=== PATIENT | male | born 1990 | race Caucasian/White ===

== ENCOUNTER 2025-02-14 18:05 | Emergency (ER) | payer MEDICAID, SELFPAY ==
[2025-02-14 18:05] VITALS: BP 140/97; PULSE 88; RESP 18; TEMP 36.9; O2SAT 98
--- NOTE | 2025-02-14 18:07 | EKG_ITS ---
[facility] Test Date: 2025-02-14 Pat Name: ANYA PATEL Department: Room: - Gender: Male Object Oriented Programmer: : 1990 Requested By: ED Temporary Provider Order Number: [id number] Reading MD: ED Temporary Provider Measurements Intervals [place] Rate: 94 P: 46 AR: 155 QRS: 40 QRSD: 94 T: 31 QT: 322 QTc: 405 Interpretive Statements SINUS RHYTHM Compared to ECG 12/17/2023 18:47:13 Sinus tachycardia no longer present /store/[id number].pdf
[2025-02-14 18:09] VITALS: BMI 39.7
--- NOTE | 2025-02-14 19:24 | XR_ITS ---
Examination: PA chest single view TECHNIQUE: Upright PA chest single view Date and time: February 14, 2025, 1930 hours. INDICATIONS: Chest pain shortness of breath today. FINDINGS: Normal heart size. Lungs are clear. The osseous structures are intact. IMPRESSION: No active disease.
--- NOTE | 2025-02-14 19:24 | PD.EDRME ---
Rapid Medical Screening Exam RME Arrival date/time: This is a case of 34-year-old male with history of hypertension came in in the emergency room due to on and off chest pain today with shortness of breath no palpitation worsening of the symptoms this patient decided to start consult here in the emergency room Chief Complaint: Chest Pain Time Seen by Provider: 02/14/25 19:24 Vital signs: Vital Signs Temperature 98.5 F 02/14/25 18:05 Pulse Rate 88 02/14/25 18:05 Respiratory Rate 18 02/14/25 18:05 Blood Pressure 140/97 H 02/14/25 18:05 Pulse Oximetry (%) 98 02/14/25 18:05 Oxygen Delivery Method Room Air 02/14/25 18:05
[2025-02-14 20:27] LABS: Basophils # (Auto) 0.1 Thou/mm3 (0.0-0.2); Basophils % (Auto) 1 % (0-2.5); Eosinophils # (Auto) 0.2 Thou/mm3 (0.0-0.5); Eosinophils % (Auto) 2 % (0-10); Hematocrit 44.7 % (41.0-53.0); Hemoglobin 15.4 g/dL (13.5-16.0); Immature Granulocytes Auto 0.03 Thou/mm3 (0.00-0.00); Lymphocytes # (Auto) 3.5 Thou/mm3 (1.0-4.8); Lymphocytes % (Auto) 34 % (10-50); Mean Corpuscular HGB Conc 34.5 g/dl (31.0-37.0); Mean Corpuscular Hemoglobin 30.3 pg (25.0-35.0); Mean Corpuscular Volume 88 fL (80-100); Monocytes # (Auto) 0.7 Thou/mm3 (0.0-0.8); Monocytes % (Auto) 7 % (0-12); Neutrophils # (Auto) 5.9 Thou/mm3 (1.8-7.7); Neutrophils % (Auto) 57 % (37-80); Nucleated Red Blood Cell # 0.00 Thou/mm3 (0.00-0.00); Nucleated Red Blood Cell % 0 /100 WBC (0); Platelet Count 237 Thou/mm3 (140-440); RDW Standard Deviation 41.3 fL (35.1-43.9); Red Blood Count 5.08 Miln/mm3 (4.50-5.90); White Blood Count 10.4 Thou/mm3 (3.8-10.6)
[2025-02-14 20:44] LABS: B-Type Natriuretic Peptide < 20 pg/mL (0-100)
[2025-02-14 20:46] LABS: Alanine Aminotransferase 97 U/L (10-49); Albumin, Serum 4.6 gm/dL (3.5-5.0); Albumin/Globulin Ratio 1.4 (1.2-2.2); Alkaline Phosphatase 69 U/L (46-116); Anion Gap 9 (7-16); Aspartate Amino Transferase 57 U/L (0-34); BUN/Creatinine Ratio 8 Ratio (12-20); Bilirubin,Total 0.7 mg/dL (0.3-1.2); Blood Urea Nitrogen 8 mg/dL (9-23); Calcium 10.1 mg/dL (8.3-10.6); Calcium (Corrected) 10.1 mg/dL (8.5-10.1); Carbon Dioxide 26.8 mMol/L (20.0-31.0); Chloride 104 mMol/L (98-107); Creatinine (Component) 1.0 mg/dL (0.6-1.3); D-Dimer < 250 ng/mL (<600); Estimated Creatinine Clearance 171.4 mL/min (>60); Globulin 3.3 gm/dL (2.3-3.5); Glucose 82 mg/dL (74-106); Osmolality,Calculated 276 (275-295); Potassium 3.8 mMol/L (3.4-5.1); Sodium 140 mMol/L (136-145); Total Protein 7.9 gm/dL (5.7-8.2); Troponin I < 0.002 ng/mL (0.0-0.045); eGFR > 60 See Note
[2025-02-15 00:02] VITALS: BP 134/84; PULSE 94; RESP 17; TEMP 36.7; O2SAT 96
[2025-02-15 00:22] LABS: Troponin I < 0.002 ng/mL (0.0-0.045)
[2025-02-15 00:59] LABS: Amphetamine/Methamp Scrn,U Negative (Negative); Barbiturate Screen,Urine Negative (Negative); Benzodiazepines Screen,Urine Negative (Negative); Benzoylecgonine Screen, Ur Negative (Negative); Fentanyl Screen,Urine Negative (Negative); Opiate Screen,Urine Negative (Negative); THC Screen,Urine Negative (Negative)
--- NOTE | 2025-02-15 01:53 | PD.EDCHEST ---
ED Chest Pain RME/HPI General Chief Complaint: Chest Pain Stated Complaint: CHEST PAIN X 20 MIN Time Seen by Provider: 02/14/25 19:24 Arrival date/time: 02/14/25 18:05 This is a case of 34-year-old male with history of hypertension came in in the emergency room due to on and off chest pain today with shortness of breath no palpitation worsening of the symptoms this patient decided to start consult here in the emergency room Limitations: no limitations RME / HPI RME / HPI narrative: This is a case of 34-year-old male with history of hypertension came in in the emergency room due to on and off chest pain today with shortness of breath no palpitation worsening of the symptoms this patient decided to start consult here in the emergency room Related Data Allergies Allergy/AdvReac Type Severity Reaction Status Date / Time No Known Allergies Allergy Verified 02/14/25 18:05 Review of Systems Review of Systems Systems Reviewed: All systems reviewed, normal except as documented Constitutional Constitutional: Reports system reviewed and no additional complaints, except as documented and Reports as per HPI Cardiovascular Cardiovascular: Reports system reviewed and no additional complaints, except as documented, Reports as per HPI, Reports chest pain and Reports dyspnea Respiratory Respiratory: Reports system reviewed and no additional complaints, except as documented, Reports as per HPI and Reports dyspnea Gastrointestinal Gastrointestinal: Reports system reviewed and no additional complaints, except as documented and Reports as per HPI Genitourinary Genitourinary: Reports system reviewed and no additional complaints, except as documented Neurologic Neurologic: Reports system reviewed and no additional complaints, except as documented and Reports as per HPI Past Medical History Social History SMOKING STATUS: Never smoker ED Exam General Limitations: Present no limitations General appearance: Present alert, in no apparent distress and other (Patient is awake alert oriented not in distress nontoxic looking well-hydrated well-nourished) Head Head exam: Present atraumatic, normocephalic and normal inspection Eye Eye exam: Present normal appearance, PERRL and EOMI ENT ENT exam: Present normal exam, normal oropharynx and mucous membranes moist Neck Neck exam: Present normal inspection, full ROM and trachea midline Chest Chest inspection: Present normal inspection and symmetric chest wall rise; Absent tenderness Respiratory Respiratory exam: Present normal lung sounds bilaterally; Absent respiratory distress, wheezes, stridor, accessory muscle use or prolonged expiratory phase Cardiovascular Cardiovascular exam: Present regular rate, normal rhythm and normal heart sounds; Absent bradycardia, tachycardia, irregular rhythm, systolic murmur or diastolic murmur Abdominal Exam Abdominal exam: Present soft and normal bowel sounds; Absent distention, tenderness, guarding, rebound, rigidity, diminished bowel sounds, hyperactive bowel sounds, hypoactive bowel sounds or organomegaly Extremities Exam Extremities exam: Present normal inspection and full ROM Back Exam Back exam: Present normal inspection and full ROM Neurological Exam Neurological exam: Present alert, oriented X3, CN II-XII intact, normal gait and reflexes normal; Absent motor sensory deficit Psychiatric Psychiatric exam: Present normal affect and normal mood Skin Skin exam: Present warm, dry, intact and normal color Course Quality Measures none Orders Category Date Time Status EKG (ED ONLY) *Do not use* NOW Care 02/14/25 18:07 Completed EKG (ED Only) Stat Exams 02/14/25 18:07 Draft XR chest 1V portable Stat Exams 02/14/25 19:24 Completed BNP [B-Type Natriuretic Peptide] Stat Lab 02/14/25 20:19 Completed CBC Stat Lab 02/14/25 20:19 Completed CMP [Comprehensive Metabolic Panel] Stat Lab 02/14/25 20:19 Completed D-Dimer Stat Lab 02/14/25 20:19 Completed Drug Screen,Urine Stat Lab 02/14/25 20:23 Completed Troponin I Stat Lab 02/14/25 20:19 Completed Troponin I Stat Lab 02/14/25 23:50 Completed Vital Signs Vital signs: Vital Signs Temperature 98.5 F 02/14/25 18:05 Pulse Rate 88 02/14/25 18:05 Respiratory Rate 18 02/14/25 18:05 Blood Pressure 140/97 H 02/14/25 18:05 Pulse Oximetry (%) 98 02/14/25 18:05 Oxygen Delivery Method Room Air 02/14/25 18:05 Oxygen saturation normal 98% Chest Pain MDM Narrative MDM Narrative:: This is a case of 34-year-old male with history of hypertension came in in the emergency room due to on and off chest pain today with shortness of breath no palpitation worsening of the symptoms this patient decided to start consult here in the emergency room physical examination patient is awake alert oriented not in distress nontoxic looking well-hydrated well-nourished lungs sound is clear no crackles no rales no retraction no stridor heart normal rate regular rhythm no murmur no edema the rest of the physical examination and neurological exam is normal and unremarkable vital signs stable BP stable not tachycardic not tachypneic not hypoxic and afebrile patient blood test showed no leukocytosis no anemia kidney and liver function is normal no electrolyte imbalance patient drug screen was -2 troponin is negative BNP is normal D-dimer is normal chest x-ray is normal sinus rhythm in the EKG based on my physical examination and history patient at the time of exam does not have any KS nor pulmonary embolism patient was advised to follow-up with PCP in 2 days for reevaluation and to be referred to senior writer for further evaluation and treatment for possible echocardiogram stress test and Holter monitor recurrence persistent worsening symptoms return precaution in the emergency room immediately or call 911 patient will continue his blood pressure and aspirin Patient was discharged with comfortable condition walking with stable gait. Patient verbalized no further complains explained diagnosis and answered patient question. Patient is comfortable with the proposed management plan including the need to follow up with his/her primary care physician and any specialist if applicable Discussed patient for any urgent condition or worsening sx, He/She needed to go to emergency room immediately or call 911. Patient acknowledge the responsibility to follow up as instructed and to monitor her/his symptoms. For any persistence of the symptoms for more than 3-5 days return precaution advised. Discussed the result of the test and was given printed discharge instruction Patient data External records reviewed:: [facility] previous records Clinical information provided by:: patient Social determinants that could affect healthcare access:: none Patient has the following chronic illnesses:: None How is presenting disease/condition affected by chronic disease/condition?: no chronic disease Evaluation data The following diagnostics were reviewed and interpreted by me:: lab results and radiology exam(s) Lab and/or radiology exams considered but not ordered:: Reviewed Interpretation Summary: Reviewed Medications / Prescriptions Medications or Prescriptions considered but not ordered:: Given Medication administrations:: Given Consultations Consultation(s) initiated? (list below): No Diagnosis Chest Pain Differential Diagnosis: atypical chest pain, costochondritis and chest pain Most likely diagnosis given after review of the tests above:: Chest pain of unknown etiology Admission Indicated Admission indicated?: not indicated Explain why admission is indicated or not indicated:: Not indicated Admission Request Was there a request for admission?: No Admission Attestation Admission request attestation: Not indicated Disposition Plan Disposition Plan: Discharge Discharge Attestation Discharge Attestation: The patient and all family members were given an opportunity to ask questions and understood the discharge instructions. Discharge instructions specifically effects, indications for sooner follow up or return to the emergency department, and the expected course of current diagnosis. Patient condition: Stable Discharge Plan Plan Patient Disposition: HOME (Self Care) Patient condition on transfer: Stable Prescriptions/Referrals Referrals: Emeka Vasquez MD [Primary Care Provider] - In 1 week Problem List Clinical Impression: Chest pain of unknown etiology Patient/Caregiver Discharge Instructions Education Materials: ED Chest Pain, Uncertain Cause, ED Pain, Acute, Uncertain Cause Additional Instructions: Follow-up with your primary care physician in 2 days for reevaluation and to be referred to senior writer for further evaluation and treatment of chest pain for possible echocardiogram stress test and Holter monitor recurrence persistent worsening symptoms or any emergent concern call 911 or go to the nearest emergency room continue to take your medication and aspirin as directed by your primary care physician keep hydrated Print Language: Ecuadorean Stand Alone Forms: Sera Award Info., Patient Portal Info Letter GILLIAN/RENATE Supervising Physician GILLIAN/RENATE Supervising Physician: Dr. Tacos Cohen
[2025-02-15 01:56] VITALS: BP 130/76; PULSE 72; RESP 16; TEMP 36.8; O2SAT 98
== END 2025-02-15 01:57 | disposition home or self-care (01) ==
PROVIDERS: Nurse Practitioner Family; Emergency Provider Emergency Medicine; PCP Family Medicine
DX: R07.9 Chest pain, unspecified (principal); I10 Essential (primary) hypertension
CPT/HCPCS: 36415; 71045; 80053; 80307; 83880; 84484; 85025; 85379; 93005; 99283